=== PATIENT | male | born 1990 | race Caucasian/White ===

== ENCOUNTER 2018-04-10 03:40 | Inpatient (IN) | payer SELFPAY ==
[2018-04-10] VITALS (28 sets, daily range): BP systolic 97–144; BP diastolic 41–90
[~2018-04-10] VITALS: Ht 185.4 cm; Wt 72.6 kg
--- NOTE | 2018-04-10 03:40 | NUR ---
BIBA TO ER BED 10
[2018-04-10] MEDS ORDERED: levETIRAcetam 1,000 MG in NACL 0.9% 100 ML IV ONE (03:50)
[2018-04-10] MEDS ORDERED: LORazepam 2 MG/ML VIAL IVP ONE ×3 (03:50→05:30)
[2018-04-10] MEDS ORDERED: LORazepam 2 MG/ML VIAL ONE (03:59)
[2018-04-10] MEDS ORDERED: NACL 0.9% 2,000 ML IV ONE (04:00)
[2018-04-10] MEDS ORDERED: ACETAMINOPHEN 650 MG SUPP RC ONE (04:00)
[2018-04-10] MEDS ORDERED: DEXAMETHASONE 10 MG/ML VIAL IVP ONE (04:00)
[2018-04-10] MEDS ORDERED: CEFEPIME 2,000 MG in DEXTROSE 5% 100 ML IV ONE (04:00)
[2018-04-10] MEDS ORDERED: VANCOMYCIN 1,000 MG in DEXTROSE 5% 250 ML IV ONE (04:00)
--- NOTE | 2018-04-10 04:05 | NUR ---
PATIENT WAS ACTIVELY SEIZING. GOT CALLED TO ER TO ASSIST DR. DEASI IN INTUBATION. INTUBATED WITH 7.5 ETT AT 24 CM AT THE LIP. CUFF INFLATED AT 30 CM H2O. ETT SECURED WITH ANCHORFAST. TUBE PATENT AND SECURE. CLEAR EQUAL AND BILATERAL BREATH SOUNDS HEARD. VENT PLUGGED INTO RED OUTLET. ALARMS ON AND AUDIBLE. AMBU BAG AT BEDSIDE. VENT SETTING ORDERED: AC, 12, 500, +5, 100%
--- NOTE | 2018-04-10 04:09 | NUR ---
SENT FOR CT VIA [facility], WITH THE [facility] AND 2 RN.
[2018-04-10] MEDS ORDERED: levETIRAcetam 100 MG/ML VIAL IV ONE (04:11)
[2018-04-10 04:17] LABS: APPEARANCE,URINE CLEAR (CLEAR); BILIRUBIN,URINE NEGATIVE (NEGATIVE); BLOOD, URINE TRACE-L (NEGATIVE); COLOR,URINE YELLOW (YELLOW); LEUKOCYTE ESTERASE ,URINE NEGATIVE (NEGATIVE); NITRITE, URINE NEGATIVE (NEGATIVE); UGLUCOSE NEGATIVE (NEGATIVE)
--- NOTE | 2018-04-10 04:18 | NUR ---
PT FOR CT [facility]IA [facility] BY RN AND TECH.
[2018-04-10 04:26] LABS: BARBITURATE, URINE NEG. ng/ml (NEG <=200); BENZODIAZEPINE, URINE NEG. ng/mL (NEG <=200); CANNABINOID, URINE POS. ng/mL (NEG <=50); COCAINE, URINE NEG. ng/mL (NEG <=300); OPIATE, URINE NEG. ng/mL (NEG <=2000); PHENCYCLIDINE SCREEN,URINE NEG. ng/mL (NEG <=25)
[2018-04-10 04:29] LABS: RBC,URINE 0-5 (RARE) /HPF (0-5); WBC,URINE 0-5 (RARE) /HPF (0-5)
[2018-04-10] MEDS ORDERED: ETOMIDATE 20 MG/10 ML VIAL IVP ONE (04:40)
[2018-04-10] MEDS ORDERED: ROCURONIUM 50 MG/5 ML VIAL IV ONE (04:40)
--- NOTE | 2018-04-10 04:54 | NUR ---
#16 FR NG tube placed to left nare. Placement checked by auscultation of instilled air into stomach and aspiration of gastric contents. Tubing taped in place to prevent dislodging. Patient tolerated well.
--- NOTE | 2018-04-10 04:54 | NUR ---
# 14 FR [place] catheter with 10 ml utilizing sterile technique. Immediate return of 50 ml YELLOW urine noted. Bedside drainage bag placed below level of bladder. Pt tolerated procedure WELL.
[2018-04-10] MEDS ORDERED: PROPOFOL 200 MG/20 ML VIAL IV ONE (04:55)
[2018-04-10 04:56] LABS: HEMATOCRIT 46.6 % (36-52); HEMOGLOBIN 15.1 g/dL (12.0-18.0); MEAN CORPUSCULAR HEMOGLOBIN 28 pg (27-31); MEAN CORPUSCULAR HGB CONC 32 g/dL (33-37); MEAN CORPUSCULAR VOLUME 85.9 fL (80-94); PLATELET COUNT (AUTO) 239 K/uL (140-450); RED BLOOD CELL COUNT(AUTO) 5.43 MIL/uL (4.20-6.10); RED CELL DISTRIBUTION WIDTH 13.6 % (11.6-13.7); WHITE BLOOD COUNT (AUTO) 14.4 K/uL (4.8-10.8)
[2018-04-10 05:11] LABS: LYMPHOCYTES % (MANUAL) 11 % (20-46); MONOCYTES % (MANUAL) 10 % (5-12)
[2018-04-10 05:12] LABS: ACETAMINOPHEN < 0.5 ug/ml (10-30); ALBUMIN 4.4 g/dL (3.4-5.0); ANION GAP 24.8 (8-16); ASPARTATE AMINOTRANSFERASE 25 U/L (15-37); CHLORIDE 102 mmol/L (98-107); CREATININE 1.3 mg/dL (0.7-1.3); GFR ARICAN-AMERICAN 84 mL/min (>90); GLUCOSE 233 mg/dL (74-106); POTASSIUM 3.8 mmol/L (3.5-5.1); SALICYLATE < 2.8 mg/dL (2.8-20.0); SODIUM SERUM 141 mmol/L (136-145); TOTAL BILIRUBIN 0.4 mg/dL (0.0-1.0); UREA NITROGEN, BLOOD 14 mg/dL (7-18)
[2018-04-10] MEDS ORDERED: CEFEPIME 2,000 MG VIAL IV ONE (05:13)
[2018-04-10 05:24] LABS: PROTHROMBIN TIME 10.3 secs (10.8-13.4)
[2018-04-10] MEDS ORDERED: PROPOFOL 1000 MG/100 ML PREMIX 100 ML IV ONE ×3 (05:24→07:57)
--- NOTE | 2018-04-10 05:30 | NUR ---
PROPOFOL STARTED TO 5 MCG.
--- NOTE | 2018-04-10 05:35 | NUR ---
PROPOFOL INCREASED TO 10 MCG.
--- NOTE | 2018-04-10 05:40 | NUR ---
PROPOFOL INCREASED TO 15 MCG.
--- NOTE | 2018-04-10 05:45 | NUR ---
Bethany laura in ED - 04/10/18 at 0657 by ARASELI STARTED PROPOFOL DRIP TO 20 MCG.
--- NOTE | 2018-04-10 05:45 | NUR ---
PROPOFOL INCREASED TO 20 MCG.
--- NOTE | 2018-04-10 05:48 | NUR ---
PT PULLED OUT NG TUBE.
[2018-04-10] MEDS ORDERED: VANCOMYCIN 1,000 MG VIAL ONE (05:52)
[2018-04-10] MEDS ORDERED: MIDAZOLAM MDV 50 MG in NACL 0.9% 40 ML IV PRN ×2 (06:00→09:30)
[2018-04-10] MEDS ORDERED: NACL 0.9% 1,000 ML IV SCH (06:13)
[2018-04-10] MEDS ORDERED: ACETAMINOPHEN 325 MG TAB PO PRN (06:15)
[2018-04-10] MEDS ORDERED: HYDROcodone/APAP 7.5/325 MG 1 TAB PO PRN (06:15)
[2018-04-10] MEDS ORDERED: ONDANSETRON 4 MG/2 ML VIAL IM/IVP PRN (06:15)
[2018-04-10] MEDS ORDERED: DOCUSATE SODIUM 100 MG GELCAP PO PRN (06:15)
[2018-04-10 06:16] LABS: CSF GLUCOSE 94 mg/dL (40-70)
--- NOTE | 2018-04-10 06:45 | NUR ---
Patient will be admitted to care of . Admited to ICU. Will go to room 3. Belongings list completed. Report to Heather.
--- NOTE | 2018-04-10 06:45 | NUR ---
PATIENT TRANSFERRED FROM ER VIA [facility] WITH 3 ASSISTANCE. PATIENT ON ETT TO VENT, WITH VERY AGITATED WITH EYES CLOSED. ABLE TO MOVE ALL EXS. ST ON THE MONITOR WITH HR 123 NOTED. PERIPHERAL LINES TO RIGHT AND LEFT AC, RUNNING WITH NS 3L BOLUS AND PROPOFOL DRIP, AND VANCOMYCIN. SKIN WARM TO TOUCH AND INTACT. STARTED VERSED DRIP AT THIS TIME. WILL CONTINUE TO MONITOR.
--- NOTE | 2018-04-10 06:50 | NUR ---
PT TRANSFERRED TO ICU W\O INCIDENTM RETURNED TO [place] ON DOCUMENTED SETTINGS PTS ET TUBE IS SECURE 23 CM TEETH ANCHOR FAST IN PLACE BS CLEAR AIRWAY IS PATENT PT IN HF QUIET RESTRAINTS IN PLACE VENT PUGGED INTO RED OUTLET BMV HOB NO SOB NOTED Addendum: 04/10/18 at 0715 by Lizette Alarcon RT ALARMS ARE ON AND AUDIBLE
--- NOTE | 2018-04-10 07:00 | NUR ---
REPORT GIVEN TO MORNING NURSE FOR CONTINUITY OF CARE.
--- NOTE | 2018-04-10 07:05 | NUR ---
RECEIVED REPORT FROM NIGHT RN PATIENT IN BED, INTUBATED AND CONNECTED TO VENTILATOR FIO2 80% AC 12 PEEP 5 TIDAL VOLUME 500 SO2 >95%, SINUS RHYTHM IN THE MONITOR, MAP >65 PATIENT AWAKENS WITH VOICE, DOES NOT OBEY COMMANDS, MOVES ALL EXTREMITIES, ON VERSED 1MG/HR, DIPRIVAN 50 MCG/KG/HR, NORMAL SALINE BOLUS FROM ENTRY LEVEL MANUFACTURING ENGINEER INFUSING. PERIPHERAL LINES: GAUGE 18 RIGHT FOREARM, GAUGE 20 LEFT AC ALL SITES ASYMPTOMATIC, SKIN INTACT, WITH FONG CATHETER DRAINING CLEAR YELLOW URINE
[2018-04-10 07:33] LABS: FREE T4 (FREE THYROXINE) 1.05 ng/dL (0.76-1.46); MAGNESIUM 2.4 mg/dL (1.8-2.4); THYROID STIMULATING HORMONE 1.14 uIU/mL (0.34-3.74)
--- NOTE | 2018-04-10 07:42 | NUR ---
Dr. Fajardo at bedside
[2018-04-10] MEDS ORDERED: PROPOFOL 1000 MG/100 ML PREMIX 100 ML IV PRN (07:45)
[2018-04-10] MEDS: DEXT 5% /NACL 0.9% 1,000 ML IV SCH ×2 (08:18→16:22)
[2018-04-10] MEDS ORDERED: ACETAMINOPHEN 650 MG SUPP RC PRN (08:40)
--- NOTE | 2018-04-10 09:15 | NUR ---
DECREASE FIO2 TO .70
--- NOTE | 2018-04-10 09:25 | NUR ---
DR. JORDAN MADE AWARE THAT PATIENT IS WAKING UP AND AGITATED, TRYING TO GET OUT OF BED, RASS-2, VERSED INCREASED TO 5 MGS/HR. DR. JORDAN CHANGED RASS GOAL TO -3
--- NOTE | 2018-04-10 09:30 | NUR ---
DR. VEGA AT BEDSIDE. CHANGED VENTILATOR SETTINGS: FIO2 40% TIDAL VOLUME 600 AC 14 PEEP 5
--- NOTE | 2018-04-10 09:40 | NUR ---
PATIENT OFF PROPOFOL ORDERED BY DR. VEGA
[2018-04-10] MEDS: PANTOPRAZOLE 40 MG INJ VIAL IVP SCH ×2 (09:44→20:32)
--- NOTE | 2018-04-10 09:46 | NUR ---
DR. VEGA NOW WANTS VERSED OFF AND TURN ON DIPRIVAN. PLAN TO WEAN AND EXTUBATE
--- NOTE | 2018-04-10 09:48 | NUR ---
DIPRIVAN OFF. NO MORE SEDATIONS. PATIENT AWAKE. PLAN TO EXTUBATE
--- NOTE | 2018-04-10 09:55 | NUR ---
PT EXTUBATED PER DR VEGA SPO2 98 RA
--- NOTE | 2018-04-10 09:55 | NUR ---
PATIENT EXTUBATED BY RT. DR. JORDAN AT BEDSIDE. SO2 97% ROOM AIR
--- NOTE | 2018-04-10 10:00 | NUR ---
PATIENT'S RESTRAINTS DISCONTINUED AT THIS TIME. PATIENT ABLE TO FOLLOW COMMANDS
--- NOTE | 2018-04-10 10:11 | NUR ---
PATIENT CONTINUES TO BE DOING WELL ON ROOM AIR SO2 96% HEART RATE 96 SINUS, BP 144/90. DROWSY BUT OBEYS COMMANDS. KEPT HEAD OF BED UP 30 DEGREES, LOW BED POSITION, CALL BO WITHIN REACH. PATIENT'S MOTHER AND SISTER AT BEDSIDE AND EXPLAINED OF THE PLAN OF CARE, PROCEDURES. FAMILY VERBALIZED UNDERSTANDING
--- NOTE | 2018-04-10 17:45 | NUR ---
RECEIVED ORDER FROM DR. NIKKI STANTON TO DISCONTINUE PATIENT'S FONG CATHETER. EXPLAINED PATIENT OF THE PROCEDURE. FONG CATHETER WAS REMOVED AND PATIENT TOLERATED. ABLE TO EMPTY 360 ML URINE
[2018-04-10] MEDS ORDERED: LORazepam 2 MG/ML VIAL IVP PRN (18:45)
--- NOTE | 2018-04-10 18:55 | NUR ---
DR. VARGAS HERE ASSESSING THE PATIENT
--- NOTE | 2018-04-10 19:00 | NUR ---
REPORT GIVEN TO NIGHT RN PATIENT AWAKE, VITAL SIGNS STABLE, ON ROOM AIR, NO BLADDER DISTENTION
--- NOTE | 2018-04-10 19:15 | NUR ---
RECEIVED BEDSIDE REPORT FROM MORNING SHIFT RN. PATIENT RESTING IN BED, AAO X4, VERBALLY RESPONSIVE, ABLE TO MAKE NEEDS KNOWN AND FOLLOW COMMANDS. NO ACUTE DISTRESS NOTED. ON ROOM AIR WITH BILATERAL LUNGS SOUND CLEAR. PERIPHERAL LINE TO RIGHT AC AND LEFT AC, PATENT AND INTACT, RUNNING D5NS 50ML/HR. DENIES PAIN BUT STOMACH DISCOMFORT NOTED. SKIN IS INTACT. TEMP 99.8 NOTED. COOLING MEASURE APPLIED. WILL CONTINUE TO MONITOR.
--- NOTE | 2018-04-10 19:20 | NUR ---
RETAIL SALESMAN AT BEDSIDE AT THIS TIME.
[2018-04-10] MEDS ORDERED: DICYCLOMINE HCL LIQUID 10 MG/5 ML UDC PO ONE (19:30)
[2018-04-10] MEDS ORDERED: ALUMINUM HYD/MAG/SIMETHICONE 30 ML UDC PO ONE (19:30)
[2018-04-10] MEDS ORDERED: LIDOCAINE VISCOUS 2% 20 ML UDC PO ONE (19:30)
[2018-04-10] MEDS: levETIRAcetam 500 MG TAB PO SCH (20:32)
[2018-04-10] MEDS ORDERED: DICYCLOMINE HCL LIQUID 10 MG/5 ML UDC ONE (20:33)
[2018-04-10] MEDS ORDERED: levETIRAcetam 500 MG TAB PO SCH (21:00)
--- NOTE | 2018-04-10 21:00 | NUR ---
ADMINISTERED SCHEDULED MEDICATIONS ORDERED. TOLERATED WELL. WILL CONTINUE TO MONITOR.
--- NOTE | 2018-04-10 22:05 | NUR ---
TRANSFERRED TO [facility] 110 B BED AT THIS TIME. REPORT GIVEN TO HUGO. DEYSI. VSS NOTED.
--- NOTE | 2018-04-10 22:15 | NUR ---
PT ARRIVED ON UNIT VIA [facility] WITH ICU NURSE. PT ABLE TO TRANSFER FROM [facility] INTO BED ON OWN. PT ACCOMPANIED BY FAMILY. PT IS AAO X4. PT IS ON RA WITH RESPIRATIONS EVEN AND UNLABORED. IV ACCES IN L AC 18G AND R FA 20G. IVS ARE PATENT AND INTACT. PT SKIN IS INTACT. NO C/O PAIN AT THIS TIME. SCDS IN PLACE. FALL RISK PROTOCOL IN PLACE. BED IS LOCKED, LOW POSITION WITH SIDE RAILS UP X2. BOARD UPDATED. CALL LIGHT WITHIN REACH. WILL CONTINUE TO MONITOR PT.
[2018-04-10] MEDS: ACETAMINOPHEN 325 MG TAB PO PRN (23:03)
--- NOTE | 2018-04-10 23:03 | NUR ---
TYLENOL ADMINISTERED FOR TEMPERATURE OF 101.3. PT TOLERATED WELL. NO S/SX OF DISTRESS. WILL CONTINUE TO MONITOR.
[2018-04-11] VITALS: BP 118/67
--- NOTE | 2018-04-11 | NUR ---
PT TEMPERATURE STILL 101.1. ICE PACKS PLACED IN PT ARMPITS. PT HAS NO SIGNS OR SYMPTOMS OF DISTRESS. WILL CONTINUE TO MONITOR.
--- NOTE | 2018-04-11 01:01 | NUR ---
TEMPERATURE NOW 100.4. PT SLEEPING COMFORTABLY IN BED. NO S/SX OF DISTRESS. WILL CONTINUE TO MONITOR.
[2018-04-11 04:00] VITALS: BP 110/69
--- NOTE | 2018-04-11 04:00 | NUR ---
PT SLEEPING COMFORTABLY IN BED. NO SIGNS OR SYMPTOMS OF DISTRESS. WILL CONTINUE TO MONITOR.
--- NOTE | 2018-04-11 07:05 | NUR ---
ENDORSED PT TO DAY SHIFT NURSE FOR CONTINUITY OF CARE. PT IN STABLE CONDITION.
--- NOTE | 2018-04-11 07:20 | NUR ---
RECEIVED PT REPORT FROM CONTRACT RUNNER NURSE. PT IS AAOX4. RESPIRATIONS EVEN AND UNLABORED. NO S/S OF DISTRESS NOTED ON ROOM AIR. IV CATH IN L AC 18G AND R FA 20G, BOTH PATENT AND INTACT. IVF D5NS RUNNING AT 50ML/HR VIA LEFT AC. PT SKIN IS INTACT. DENIES PAIN AT THIS TIME. SCDS IN PLACE. FALL RISK PROTOCOL IN PLACE. BED IS LOCKED, LOWEST POSITION WITH SIDE RAILS UP X2. SZ PRECAUTIONS IN PLACE. BOARD UPDATED. CALL LIGHT WITHIN REACH. WILL CONTINUE TO MONITOR PT.
[2018-04-11 07:49] LABS: BASOPHILS % (AUTO) 0.3 % (0.0-2.0); EOSINOPHILS % (AUTO) 0.1 % (0.0-4.0); HEMATOCRIT 43.5 % (36-52); HEMOGLOBIN 14.3 g/dL (12.0-18.0); LYMPHOCYTES # (AUTO) 0.7 K/uL (2.0-11.5); LYMPHOCYTES % (AUTO) 8.7 % (20.5-51.1); MEAN CORPUSCULAR HEMOGLOBIN 28 pg (27-31); MEAN CORPUSCULAR HGB CONC 33 g/dL (33-37); MEAN CORPUSCULAR VOLUME 83.9 fL (80-94); MONOCYTES # (AUTO) 0.7 K/uL (0.8-1.0); MONOCYTES % (AUTO) 9.4 % (1.7-9.3); NEUTROPHILS # (AUTO) 6.3 K/uL (1.8-7.7); NEUTROPHILS % (AUTO) 81.5 % (42.2-75.2); PLATELET COUNT (AUTO) 197 K/uL (140-450); RED BLOOD CELL COUNT(AUTO) 5.19 MIL/uL (4.20-6.10); RED CELL DISTRIBUTION WIDTH 13.4 % (11.6-13.7); WHITE BLOOD COUNT (AUTO) 7.7 K/uL (4.8-10.8)
[2018-04-11 08:00] VITALS: BP 124/77
[2018-04-11 08:11] LABS: ANION GAP 14.7 (8-16); CARBON DIOXIDE 27.4 mmol/L (21-32); POTASSIUM 3.1 mmol/L (3.5-5.1)
[2018-04-11 08:26] LABS: MAGNESIUM 2.2 mg/dL (1.8-2.4); PHOSPHORUS 1.9 mg/dL (2.5-4.9)
--- NOTE | 2018-04-11 08:46 | NUR ---
PATIENT HAS BEEN SCREENED AND CATEGORIZED HIGH NUTRITION RISK. PATIENT WILL BE SEEN WITHIN 1-2 DAYS OF ADMISSION. 04/11/[address]
[2018-04-11] MEDS ORDERED: levETIRAcetam 500 MG TAB PO SCH (09:00)
[2018-04-11] MEDS: levETIRAcetam 500 MG TAB PO SCH (09:34)
[2018-04-11] MEDS: PANTOPRAZOLE 40 MG INJ VIAL IVP SCH (09:34)
--- NOTE | 2018-04-11 09:50 | NUR ---
PER DR JORDAN, PT CAN SHOWER. TOOK PT TO SHOWER, ALL IV CATH HAS BEEN WRAPPED WITH PLASTIC BAG. PT SAFELY RETURNED TO HIS ROOM AFTER THE SHOWER. NO S/S OF ACUTE DISTRESS.
[2018-04-11] MEDS ORDERED: POTASSIUM CHLORIDE 10 MEQ TABER PO SCH (10:00)
[2018-04-11] MEDS: DEXT 5% /NACL 0.9% 1,000 ML IV SCH (10:00)
[2018-04-11] MEDS ORDERED: KEP500 PO (10:43)
[2018-04-11] MEDS: ACETAMINOPHEN 325 MG TAB PO PRN (12:19)
--- NOTE | 2018-04-11 12:30 | NUR ---
PT HAD LUNCH, NO S/S OF ACUTE DISTRESS.
[2018-04-11] MEDS ORDERED: SODIUM PHOS / POTASSIUM PHOS 1 PKT PDR PO SCH (13:00)
--- NOTE | 2018-04-11 13:15 | NUR ---
PT DISCHARGED PER MD ORDER. DISCHARGE INSTRUCTIONS AND MEDICATION TEACHING GIVEN. RX PROVIDED, MADE PT AWARE THAT HE NEEDS TO MAKE APPT WITH DR JIMENEZ. PT VERBALIZED UNDERSTANDING. IV CATHS DC'D, TIPS INTACT, PRESSURE APPLIED. PT DRESSED HIMSELF. PT LEFT IN STABLE CONDITION, NO S/S OF DISTRESS ON RM AIR. DENIES PAIN OR DIZZINESS. PT LEFT WITH ALL HIS BELONGINGS WITH HIS FAMILY.
== END 2018-04-11 13:15 | disposition home or self-care (01) | DRG 208 ==
LOC: MED 03:40 → MLD 06:15 → UNDOADMIN 06:15 → MIC 06:15 → MTU 22:05
PROVIDERS: ADMIT General Practice; ATTEND General Practice
PROC: 5A1935Z Respiratory Ventilation, Less than 24 Consecutive Hours (ICD-10-PCS; principal; 2018-04-10)
PROC: 009U3ZX Drainage of Spinal Canal, Percutaneous Approach, Diagnostic (ICD-10-PCS; 2018-04-10)
PROC: 0BH17EZ Insertion of Endotracheal Airway into Trachea, Via Natural or Artificial Opening (ICD-10-PCS; 2018-04-10)
DX: J96.00 Acute respiratory failure, unspecified whether with hypoxia or hypercapnia (principal); E87.2 Acidosis; A08.4 Viral intestinal infection, unspecified; K21.9 Gastro-esophageal reflux disease without esophagitis; G40.401 Other generalized epilepsy and epileptic syndromes, not intractable, with status epilepticus; E78.5 Hyperlipidemia, unspecified; E83.52 Hypercalcemia; F12.90 Cannabis use, unspecified, uncomplicated; E86.0 Dehydration; D72.829 Elevated white blood cell count, unspecified; Z83.3 Family history of diabetes mellitus; Z80.42 Family history of malignant neoplasm of prostate; Z71.51 Drug abuse counseling and surveillance of drug abuser
CPT/HCPCS: 31500; 36415; 36600; 62270; 70450; 71045; 80048; 80053; 80305; 81001; 82150; 82803; 82948; 83036; 83605; 83690; 83735; 83880; 84100; 84157; 84436; 84439; 84443; 84484; 85025; 85610; 85730; 87040; 87070; 87081; 87086; 87205; 89220; 93005; 94003; 95816; 96374; 96375; 99285; C9113; G0480; G0482; J0692; J1100; J1644; J1953; J2060; J2250; J2704; J3370; J3490; J7042; Q0092

== ENCOUNTER 2018-07-13 06:25 | Emergency (ER) | payer OTHER, MEDICAID ==
[~2018-07-13] VITALS: Ht 185.4 cm; Wt 59.0 kg
[2018-07-13 06:25] VITALS: BP 118/78
[~2018-07-13 06:25] MED LIST: KEP500 PO
--- NOTE | 2018-07-13 06:25 | NUR ---
L AC 18G; IV STARTED IN FIELD. FLUSHES W/O RESISTANCE. NO REDNESS OR SWELLING NOTED.
--- NOTE | 2018-07-13 06:25 | NUR ---
PT AMBULATED FROM [facility] TO BED 10.
--- NOTE | 2018-07-13 06:25 | NUR ---
PT BIBA C/O SEIZURE. FAMILY STATED TO HEARING NOISES FROM PT BEDROOM, WHEN ENTERED ROOM PT WAS IN BED TO WHAT LOOKED LIKE A 5 MINUTE FULL BODY SEIZURE. PT WAS GIVEN NARCAN IN THE FIELD. --PT STATES NORMAL BEDTIME ROUTINE. PT STATES HE SMOKES WEED REGULARLY. DENIES ALCOHOL OR DRUG USE. PT STATES 0/10 PAIN AT THIS TIME. DENIES N/V/D, FEVER, CHILLS, SOB OR CP. --PT +CLEAR SPEECH. PATENT AIRWAY. NO ORAL TRAUMA NOTED. AAOX4. PT ACTING APPROPRIATLY. HAND CUSTOMER SERVICE SALES ASSOCIATE STRONG BL. SKIN WARM DRY AND INTACT. --SEIZURE PRECAUTIONS IN PLACE. PT ON HEATING AND AIR CONDITIONING MECHANIC, SUCTION AT BESIDE. PT IN GOWN, IN BED; BED IN LOWER LOCKED POSITION. ER AWARE. WILL CONTINUE TO MONITOR. PMH: SEIZURES RX: DENIES
--- NOTE | 2018-07-13 06:44 | NUR ---
MOTHER AT BESIDE.
--- NOTE | 2018-07-13 07:00 | NUR ---
BROTHER AT BEDSIDE.
--- NOTE | 2018-07-13 07:10 | NUR ---
Pt report given to DEYSI Ramirez. Transfer of care at this time.
--- NOTE | 2018-07-13 07:16 | NUR ---
PT HAD SEIZURE X1 LASTING APPROX. 3 MINUTES. ATIVAN IVP 2MG ADMINISTERED PER VERBAL ORDER BY ERMD. SUCTIONED NEEDED, PT PLACED ON O2 AT 2LPM. HOB ELEVATED, SEIZURE PADS IN PLACE. PT BECAME AGITATED POST SEIZURE, PLACED PT IN RESTRAINTS PER ERMD VERBAL ORDER. VSS.
[2018-07-13] MEDS ORDERED: levETIRAcetam 1,000 MG in NACL 0.9% 100 ML IV ONE (07:20)
[2018-07-13] MEDS ORDERED: LORazepam 2 MG/ML VIAL ONE (07:23)
[2018-07-13] MEDS ORDERED: levETIRAcetam 100 MG/ML VIAL IV ONE (07:29)
[2018-07-13] MEDS ORDERED: LORazepam 2 MG/ML VIAL IVP ONE (07:30)
[2018-07-13 07:37] LABS: BASOPHILS # (AUTO) 0.1 K/uL (0.00-0.22); BASOPHILS % (AUTO) 0.8 % (0.0-2.0); EOSINOPHILS # (AUTO) 0.2 K/uL (0-0.4); EOSINOPHILS % (AUTO) 1.5 % (0.0-4.0); HEMATOCRIT 48.4 % (36-52); HEMOGLOBIN 15.7 g/dL (12.0-18.0); LYMPHOCYTES # (AUTO) 2.4 K/uL (2.0-11.5); LYMPHOCYTES % (AUTO) 22.4 % (20.5-51.1); MEAN CORPUSCULAR HEMOGLOBIN 29 pg (27-31); MEAN CORPUSCULAR HGB CONC 33 g/dL (33-37); MONOCYTES # (AUTO) 0.9 K/uL (0.8-1.0); MONOCYTES % (AUTO) 8.6 % (1.7-9.3); NEUTROPHILS % (AUTO) 66.7 % (42.2-75.2); PLATELET COUNT (AUTO) 291 K/uL (140-450); RED CELL DISTRIBUTION WIDTH 13.7 % (11.6-13.7); WHITE BLOOD COUNT (AUTO) 10.5 K/uL (4.8-10.8)
--- NOTE | 2018-07-13 08:03 | NUR ---
urine collected and sent to lab
--- NOTE | 2018-07-13 08:19 | NUR ---
PT CALM, ALERT,ORIENTED. + CIRCULATION ON ALL EXTREMITIES, NO INJURY NOTED, OFF RESTRAINTS, ERMD AWARE.
[2018-07-13 08:37] LABS: APPEARANCE,URINE CLEAR (CLEAR); BILIRUBIN,URINE NEGATIVE (NEGATIVE); BLOOD, URINE NEGATIVE (NEGATIVE); COLOR,URINE YELLOW (YELLOW); LEUKOCYTE ESTERASE ,URINE NEGATIVE (NEGATIVE); NITRITE, URINE NEGATIVE (NEGATIVE); UGLUCOSE NEGATIVE (NEGATIVE)
[2018-07-13 08:39] LABS: ANION GAP 30.8 (8-16); CARBON DIOXIDE 13.8 mmol/L (21-32); CHLORIDE 103 mmol/L (98-107); CREATININE 1.2 mg/dL (0.7-1.3); GFR ARICAN-AMERICAN 92 mL/min (>90); GLUCOSE 124 mg/dL (74-106); POTASSIUM 3.6 mmol/L (3.5-5.1); SODIUM SERUM 144 mmol/L (136-145); UREA NITROGEN, BLOOD 14 mg/dL (7-18)
[2018-07-13 08:44] LABS: BARBITURATE, URINE NEG. ng/ml (NEG <=200); BENZODIAZEPINE, URINE NEG. ng/mL (NEG <=200); CANNABINOID, URINE POS. ng/mL (NEG <=50); COCAINE, URINE NEG. ng/mL (NEG <=300); OPIATE, URINE NEG. ng/mL (NEG <=2000); PHENCYCLIDINE SCREEN,URINE NEG. ng/mL (NEG <=25)
[2018-07-13 08:44] LABS: ALBUMIN 4.5 g/dL (3.4-5.0); ASPARTATE AMINOTRANSFERASE 29 U/L (15-37); SALICYLATE 2.9 mg/dL (2.8-20.0); TOTAL BILIRUBIN 0.4 mg/dL (0.0-1.0)
[2018-07-13 08:45] LABS: ACETAMINOPHEN < 0.5 ug/ml (10-30)
--- NOTE | 2018-07-13 08:49 | NUR ---
PT BEING EVALUATED BY ER AT THIS TIME.
[2018-07-13] MEDS ORDERED: NACL 0.9% 1,000 ML IV ONE ×2 (09:00→12:25)
[2018-07-13 09:21] LABS: RBC,URINE 0-5 /HPF (0-5); WBC,URINE 0-5 /HPF (0-5)
--- NOTE | 2018-07-13 10:27 | NUR ---
PT ASLEEP AT THIS TIME. PT WAS GIVEN ATIVAN FOR SEIZURE. VSS. SATURATING 96% IN ROOM AIR.
--- NOTE | 2018-07-13 11:19 | NUR ---
Patient to be transferred to [facility]. Is being transferred due to SEIZURE, LACTIC ACIDOSIS. Receiving facility has accepting physician and available space. ER physician has signed transfer form. Patient or responsible republican has agreed to transfer and signed form. Patient belongings inventoried and will be sent with patient. Copy of nursing notes, lab reports, EKG, Physicians Orders and X-rays to be sent with patient. Report called to DEYSI LOPEZ at receiving facility. [facility] ambulance service has been called for transfer. ETA is 1130.
--- NOTE | 2018-07-13 12:40 | NUR ---
[facility] HERE FOR ESCAPEMENT MAKER. REPORT GIVEN TO [facility] PERSONEL. INFORMATION PACKET PROVIDED TO [facility] PERSONNEL. FAMILY AWARE OF TRANSFER.
[2018-07-13 12:43] VITALS: BP 113/80
--- NOTE | 2018-07-14 10:49 | NUR ---
Late entry. IV bolus 0.9NS completed at 1015.
== END 2018-07-13 12:40 | disposition short-term general hospital (02) ==
LOC: MED 06:25
DX: R56.9 Unspecified convulsions (principal); E87.2 Acidosis
CPT/HCPCS: 36415; 70450; 71045; 80053; 80305; 81001; 82550; 82948; 83605; 84484; 85025; 93005; 96365; 96375; 99291; G0480; G0482; J1953; J2060; J7030; Q0092

== ENCOUNTER 2018-07-22 20:22 | Emergency (ER) | payer OTHER, MEDICAID ==
[~2018-07-22] VITALS: Ht 185.4 cm; Wt 77.1 kg
--- NOTE | 2018-07-22 20:22 | NUR ---
PT [facility] TO ER BED 11
[2018-07-22 20:25] VITALS: BP 129/82
--- NOTE | 2018-07-22 20:25 | NUR ---
PT [facility], REPORT RECEIVED, PT HAD A SEIZURE AT WORK LASTING 1 MIN, FELL AND HIT HIS HEAD, HAS AN ABRASION ON THE RIGHT SIDE OF HIS FOREHEAD AND ABOVE HIS LIP. PT WAS AGGRESSIVE/COMBATIVE ON ROUTE. PT IS ALERT AND ORIENTED TO NAME AND BIRTHDATE, BUT NOT ALERT TO ACTUAL AGE, PLACE AND HAS EPISODES OF NON TANGIBLE INFORMATION. PUPILS ARE BRISK 4MM, PERRLA, HX OF MARIJUANA USE . CURRENT RX OF [facility]. ER MD MADE AWARE. BED IN LOW POSITION , SEIZURE PRECATUTIONS IN PLACE, PADS UP ON BEDSIDE RAILS, RAILS X 2. PT TOLERATED WELL. WILL CONTINUE TO MONITOR. MED HX:SEIZURES
--- NOTE | 2018-07-22 21:00 | NUR ---
PT REFUSING TX AT THIS TIME, PT IS STILL CONFUSED. WAITING FOR FAMILY FOR FURTHER DETAILS OF THE PT MEDICAL HX.
--- NOTE | 2018-07-22 21:29 | NUR ---
PT HAVING A TONIC-CLONIC SEIZURE. PER VERBAL ORDER FROM DR REED, ATIVAN 2MG IM STAT. ADMINISTERED ATIVAN 2MG IM ON R DELTOID, PT ABLE TO TOLERATE MED WELL.
[2018-07-22] MEDS ORDERED: LORazepam 2 MG/ML VIAL ONE (21:36)
--- NOTE | 2018-07-22 21:38 | NUR ---
PT HAD A SEIZURE THAT LASTED 1 MIN, SIDE RAIL PADS ALREADY IN PLACE, PATIENT POSITIONED IN A SIDELYING POSITION, SUCTION AT BEDSIDE, O2 SAT 74% DURING ICTAL STATE, O2 PLACED AND STARTED AT 2L AND THEN ADVANCED TO 4L OF 02 TO MAINTAIN SAT AT 94% . ER MD, RN, AND EMT AT BEDSIDE. POST ICTAL, THE PATIENT IS RESTING. WILL CONTINUE TO MONITOR.
--- NOTE | 2018-07-22 21:45 | NUR ---
POST SEIZURE FAMILY AND PT REQUEST TO HAVE INTERVENTIONS DONE, FAMILY AT BEDSIDE, CT CALLED FOR THE PT. IV INITIATED AND LABS WERE DRAWN. PATIENT IS RESTING IN BED CALMLY. WILL CONTINUE TO MONITOR.
--- NOTE | 2018-07-22 21:56 | NUR ---
Patient taken to CT accompanied by DEYSI Samuels and EMT Declan.
--- NOTE | 2018-07-22 22:00 | NUR ---
PT TOLERATED CT WELL. PT RESTING IN BED AND FAMILY AT BEDSIDE.
[2018-07-22 22:35] LABS: BASOPHILS # (AUTO) 0.2 K/uL (0.00-0.22); BASOPHILS % (AUTO) 1.2 % (0.0-2.0); HEMOGLOBIN 14.2 g/dL (12.0-18.0); LYMPHOCYTES # (AUTO) 0.6 K/uL (2.0-11.5); LYMPHOCYTES % (AUTO) 3.6 % (20.5-51.1); MEAN CORPUSCULAR HEMOGLOBIN 28 pg (27-31); MEAN CORPUSCULAR HGB CONC 34 g/dL (33-37); MEAN CORPUSCULAR VOLUME 83.5 fL (80-94); MONOCYTES % (AUTO) 6.6 % (1.7-9.3); NEUTROPHILS # (AUTO) 13.6 K/uL (1.8-7.7); NEUTROPHILS % (AUTO) 88.6 % (42.2-75.2); PLATELET COUNT (AUTO) 261 K/uL (140-450); RED BLOOD CELL COUNT(AUTO) 5.04 MIL/uL (4.20-6.10); RED CELL DISTRIBUTION WIDTH 13.4 % (11.6-13.7); WHITE BLOOD COUNT (AUTO) 15.4 K/uL (4.8-10.8)
[2018-07-22 22:52] LABS: ANION GAP 16.9 (8-16); CARBON DIOXIDE 24.9 mmol/L (21-32); CHLORIDE 97 mmol/L (98-107); CREATININE 1.2 mg/dL (0.7-1.3); GFR ARICAN-AMERICAN 92 mL/min (>90); GLUCOSE 113 mg/dL (74-106); POTASSIUM 3.8 mmol/L (3.5-5.1); SODIUM SERUM 135 mmol/L (136-145); UREA NITROGEN, BLOOD 9 mg/dL (7-18)
[2018-07-22 22:58] LABS: ALBUMIN 4.3 g/dL (3.4-5.0); ASPARTATE AMINOTRANSFERASE 26 U/L (15-37); TOTAL BILIRUBIN 0.6 mg/dL (0.0-1.0)
[2018-07-22 22:59] LABS: ACETAMINOPHEN < 0.5 ug/ml (10-30); SALICYLATE < 2.8 mg/dL (2.8-20.0)
--- NOTE | 2018-07-22 23:02 | NUR ---
UA COLLECTED FROM PT, LAB TO LIEUTENANT/DEPUTY.
[2018-07-23 00:09] LABS: BARBITURATE, URINE NEG. ng/ml (NEG <=200); BENZODIAZEPINE, URINE NEG. ng/mL (NEG <=200); CANNABINOID, URINE POS. ng/mL (NEG <=50); COCAINE, URINE NEG. ng/mL (NEG <=300); OPIATE, URINE NEG. ng/mL (NEG <=2000); PHENCYCLIDINE SCREEN,URINE NEG. ng/mL (NEG <=25)
[2018-07-23] MEDS ORDERED: ACETAMINOPHEN EXTRA STRENGTH 500 MG TAB PO ONE (00:15)
--- NOTE | 2018-07-23 00:20 | NUR ---
PT HAD A LOW GRADE FEVER, MADE AWARE, PT WAS GIVEN TYLENOL. WILL CONTINUE TO ASSESS.
[2018-07-23 00:50] VITALS: BP 125/78
--- NOTE | 2018-07-23 00:50 | NUR ---
Patient discharged with v/s stable. Written and verbal after care instructions given and explained. Patient verbalized understanding. Ambulatory with steady gait. All questions addressed prior to discharge. Advised to follow up with PMD. father of the pt was with him at d/c.
[2018-07-25] MEDS ORDERED: LORazepam 2 MG/ML VIAL IM ONE (02:25)
== END 2018-07-23 00:50 | disposition home or self-care (01) ==
LOC: MED 20:22
DX: S00.81XA Abrasion of other part of head, initial encounter (principal); R56.9 Unspecified convulsions; Z79.899 Other long term (current) drug therapy; X58.XXXA Exposure to other specified factors, initial encounter; Y93.89 Activity, other specified; Y92.89 Other specified places as the place of occurrence of the external cause; Y99.8 Other external cause status
CPT/HCPCS: 36415; 70450; 72125; 80053; 80305; 81002; 85025; 93005; 99284; G0480; G0482; J2060

== ENCOUNTER 2019-05-11 10:19 | Emergency (ER) | payer MEDICAID, OTHER ==
[~2019-05-11] VITALS: Ht 172.7 cm; Wt 63.5 kg
[2019-05-11 10:29] VITALS: BP 122/74
[2019-05-11] MEDS ORDERED: NACL 0.9% 1,000 ML IV ONE (10:35)
[2019-05-11 11:12] LABS: BASOPHILS # (AUTO) 0.1 K/uL (0.00-0.22); BASOPHILS % (AUTO) 0.6 % (0.0-2.0); EOSINOPHILS # (AUTO) 0.1 K/uL (0-0.4); EOSINOPHILS % (AUTO) 0.7 % (0.0-4.0); HEMATOCRIT 44.8 % (36-52); HEMOGLOBIN 14.5 g/dL (12.0-18.0); LYMPHOCYTES # (AUTO) 2.1 K/uL (2.0-11.5); LYMPHOCYTES % (AUTO) 18.7 % (20.5-51.1); MEAN CORPUSCULAR HEMOGLOBIN 29 pg (27-31); MEAN CORPUSCULAR HGB CONC 32 g/dL (33-37); MONOCYTES # (AUTO) 0.8 K/uL (0.8-1.0); MONOCYTES % (AUTO) 6.8 % (1.7-9.3); NEUTROPHILS # (AUTO) 8.4 K/uL (1.8-7.7); NEUTROPHILS % (AUTO) 73.2 % (42.2-75.2); PLATELET COUNT (AUTO) 291 K/uL (140-450); RED BLOOD CELL COUNT(AUTO) 4.93 MIL/uL (4.20-6.10); WHITE BLOOD COUNT (AUTO) 11.5 K/uL (4.8-10.8)
[2019-05-11 11:30] LABS: ANION GAP 25.5 (8-16); CARBON DIOXIDE 16.2 mmol/L (21-32); CHLORIDE 101 mmol/L (98-107); CREATININE 1.1 mg/dL (0.7-1.3); GFR ARICAN-AMERICAN 101 mL/min (>90); GLUCOSE 135 mg/dL (74-106); POTASSIUM 3.7 mmol/L (3.5-5.1); SODIUM SERUM 139 mmol/L (136-145); UREA NITROGEN, BLOOD 19 mg/dL (7-18)
[2019-05-11 11:42] LABS: ALBUMIN 4.4 g/dL (3.4-5.0); ASPARTATE AMINOTRANSFERASE 21 U/L (15-37); TOTAL BILIRUBIN 0.4 mg/dL (0.0-1.0)
[2019-05-11 12:14] LABS: APPEARANCE,URINE CLEAR (CLEAR); BILIRUBIN,URINE NEGATIVE (NEGATIVE); BLOOD, URINE NEGATIVE (NEGATIVE); COLOR,URINE YELLOW (YELLOW); LEUKOCYTE ESTERASE ,URINE NEGATIVE (NEGATIVE); NITRITE, URINE NEGATIVE (NEGATIVE); UGLUCOSE NEGATIVE (NEGATIVE)
--- NOTE | 2019-05-11 12:32 | NUR ---
Stable VSS Has had no seizure activity On Monitor Mother at bedside NS running [email or web address] is a send out MD informed Patient denies taking meds today
[2019-05-11] MEDS ORDERED: levETIRAcetam 1,000 MG in NACL 0.9% 100 ML IV ONE (12:35)
[2019-05-11 12:43] LABS: BARBITURATE, URINE NEG. ng/ml (NEG <=200); BENZODIAZEPINE, URINE NEG. ng/mL (NEG <=200); CANNABINOID, URINE POS. ng/mL (NEG <=50); COCAINE, URINE NEG. ng/mL (NEG <=300); OPIATE, URINE NEG. ng/mL (NEG <=2000); PHENCYCLIDINE SCREEN,URINE NEG. ng/mL (NEG <=25)
[2019-05-11 13:30] VITALS: BP 127/84
--- NOTE | 2019-05-11 13:31 | NUR ---
Stable VSS Has had no seizure activity.. Given Keppra as ordered Encouraged to take at home as directed.. Understanding verbalized. Dc'd to awaiting vehicle via wheelchair
--- NOTE | 2019-05-12 12:12 | NUR ---
Late entry. Confirmed with RN that 0.9 NS IV started at 1041 and completed at 1140
--- NOTE | 2019-05-12 12:51 | NUR ---
Late entry. Confirmed with RN that Keppra IV started at 1303 and completed at 1325
== END 2019-05-11 13:31 | disposition home or self-care (01) ==
LOC: MED 10:19
DX: G40.909 Epilepsy, unspecified, not intractable, without status epilepticus (principal); F12.90 Cannabis use, unspecified, uncomplicated; Z91.14 Patient's other noncompliance with medication regimen; Z79.899 Other long term (current) drug therapy
CPT/HCPCS: 36415; 71045; 80053; 80173; 80305; 81003; 83880; 84484; 85025; 93005; 96365; 99284; G0482; J1953; J7030; Q0092

== ENCOUNTER 2019-07-27 11:36 | Observation (INO) | payer OTHER ==
[~2019-07-27] VITALS: Ht 172.7 cm; Wt 73.0 kg
[2019-07-27 11:39] VITALS: BP 153/92
[2019-07-27 12:23] LABS: APPEARANCE,URINE CLEAR (CLEAR); BILIRUBIN,URINE NEGATIVE (NEGATIVE); BLOOD, URINE NEGATIVE (NEGATIVE); COLOR,URINE YELLOW (YELLOW); LEUKOCYTE ESTERASE ,URINE NEGATIVE (NEGATIVE); NITRITE, URINE NEGATIVE (NEGATIVE); UGLUCOSE NEGATIVE (NEGATIVE)
[2019-07-27 13:02] LABS: BARBITURATE, URINE NEGATIVE ng/ml (NEG <=200); BENZODIAZEPINE, URINE NEGATIVE ng/mL (NEG <=200); CANNABINOID, URINE NEGATIVE ng/mL (NEG <=50); COCAINE, URINE NEGATIVE ng/mL (NEG <=300); OPIATE, URINE NEGATIVE ng/mL (NEG <=2000); PHENCYCLIDINE SCREEN,URINE NEGATIVE ng/mL (NEG <=25)
[2019-07-27] MEDS ORDERED: LORazepam 2 MG/ML VIAL IM ONE (14:40)
[2019-07-27] MEDS ORDERED: HALOPERIDOL IM 5 MG/ML VIAL IM ONE (14:40)
[2019-07-27 15:11] LABS: BASOPHILS # (AUTO) 0.1 K/uL (0.00-0.22); BASOPHILS % (AUTO) 0.7 % (0.0-2.0); EOSINOPHILS # (AUTO) 0.1 K/uL (0-0.4); EOSINOPHILS % (AUTO) 0.6 % (0.0-4.0); HEMATOCRIT 45.2 % (36-52); HEMOGLOBIN 15.2 g/dL (12.0-18.0); LYMPHOCYTES # (AUTO) 1.6 K/uL (2.0-11.5); LYMPHOCYTES % (AUTO) 16.8 % (20.5-51.1); MEAN CORPUSCULAR HEMOGLOBIN 30 pg (27-31); MEAN CORPUSCULAR HGB CONC 34 g/dL (33-37); MEAN CORPUSCULAR VOLUME 87.9 fL (80-94); MONOCYTES # (AUTO) 0.7 K/uL (0.8-1.0); MONOCYTES % (AUTO) 7.8 % (1.7-9.3); NEUTROPHILS # (AUTO) 6.9 K/uL (1.8-7.7); NEUTROPHILS % (AUTO) 74.1 % (42.2-75.2); PLATELET COUNT (AUTO) 275 K/uL (140-450); RED BLOOD CELL COUNT(AUTO) 5.15 MIL/uL (4.20-6.10); RED CELL DISTRIBUTION WIDTH 13.9 % (11.6-13.7); WHITE BLOOD COUNT (AUTO) 9.3 K/uL (4.8-10.8)
[2019-07-27 15:25] LABS: ALBUMIN 4.3 g/dL (3.4-5.0); ANION GAP 14.9 (8-16); ASPARTATE AMINOTRANSFERASE 67 U/L (15-37); CARBON DIOXIDE 28.3 mmol/L (21-32); CHLORIDE 102 mmol/L (98-107); GFR ARICAN-AMERICAN 113 mL/min (>90); GLUCOSE 130 mg/dL (74-106); POTASSIUM 3.2 mmol/L (3.5-5.1); SODIUM SERUM 142 mmol/L (136-145); TOTAL BILIRUBIN 0.5 mg/dL (0.0-1.0); UREA NITROGEN, BLOOD 7 mg/dL (7-18)
[2019-07-27 15:26] LABS: ACETAMINOPHEN < 0.5 ug/ml (10-30); SALICYLATE < 2.8 mg/dL (2.8-20.0)
[2019-07-27] MEDS ORDERED: ONDANSETRON 4 MG/2 ML VIAL IVP PRN (18:25)
[2019-07-27] MEDS ORDERED: LORazepam 1 MG TAB PO PRN (18:25)
[2019-07-27] MEDS ORDERED: ACETAMINOPHEN 325 MG TAB PO PRN (18:25)
[2019-07-27] MEDS ORDERED: HYDROcodone/APAP 5/325 MG 1 TAB TAB PO PRN (18:25)
[2019-07-27] MEDS ORDERED: POTASSIUM CHLORIDE 10 MEQ TABER PO SCH (19:00)
[2019-07-27 20:30] VITALS: BP 145/101
[2019-07-27 22:08] VITALS: BP 145/101
== END 2019-07-27 23:30 ==
LOC: MED 11:36 → MTU 18:21
PROVIDERS: ADMIT Hospitalist; ATTEND Hospitalist
DX: F23 Brief psychotic disorder (principal); E87.6 Hypokalemia; R74.0 Nonspecific elevation of levels of transaminase and lactic acid dehydrogenase [LDH]; F10.99 Alcohol use, unspecified with unspecified alcohol-induced disorder; F17.210 Nicotine dependence, cigarettes, uncomplicated; Z86.69 Personal history of other diseases of the nervous system and sense organs; Z79.899 Other long term (current) drug therapy
CPT/HCPCS: 36415; 80053; 80305; 81003; 85025; 87081; 99285; G0378; G0480; G0482; J1630; J2060